=== PATIENT | female | born 1990 | race Caucasian/White ===

== ENCOUNTER 2021-06-10 23:30 | Emergency (ER) | payer OTHER ==
[2021-06-11] MEDS ORDERED: ACETAMINOPHEN TAB 500 MG TAB PO STA (00:24)
[2021-06-11] MEDS ORDERED: IBUPROFEN 600 MG TAB PO STA (00:25)
--- NOTE | 2021-06-11 00:37 | ED ---
Animal Bite HPI - General Chief Complaint: Animal Bite Stated Complaint: Dog bite Time Seen by Provider: 06/11/21 00:19 Source: patient, RN notes reviewed Mode of arrival: ambulatory Limitations: no limitations - History of Present Illness Initial Comments: This is a pleasant 30-year-old female presents to emergency department complaining of a dog bite to her left forearm as well as her right index finger. This was her friend's pit bull who she just met today for the first time. Dog is up-to-date on immunizations. Patient is up-to-date on tetanus. No immunosuppression. No functional impairment. No distal paresthesias. Injury occurred just over an hour ago. No headache, no fever or chills, no changes in vision or hearing, no sore throat or difficulty with speech, no neck pain, no chest pain or shortness of breath, no abdominal pain, no nausea or vomiting, no changes in urination or bowel movements, no numbness or tingling,, no skin rashes or lesions. MD Complaint: animal bite - Related Data Previous Rx's Medication Instructions Recorded Amoxicillin/Potassium Clav 1 each PO Q12HR #20 tab 06/11/21 [Augmentin 875-125 Tablet] Allergies Allergy/AdvReac Type Severity Reaction Status Date / Time No Known Allergies Allergy Verified 06/10/21 23:38 Review of Systems ROS Statement: Those systems with pertinent positive or pertinent negative responses have been documented in the HPI. ROS Other: All systems not noted in ROS Statement are negative. Past Medical History Past Medical History: No Reported History History of Any Multi-Drug Resistant Organisms: None Reported Past Surgical History: No Surgical Hx Reported Past Psychological History: No Psychological Hx Reported Smoking Status: Never smoker Past Alcohol Use History: None Reported Past Drug Use History: None Reported General Exam - General Exam Comments Initial Comments: Patient in mild distress. Does not appear to be ill or toxic. Cranial nerves II through XII grossly intact. Limitations: no limitations General appearance: alert, in distress Head exam: Present: atraumatic, normocephalic, normal inspection Eye exam: Present: normal appearance, PERRL, EOMI. Absent: scleral icterus, conjunctival injection, periorbital swelling ENT exam: Present: normal exam, mucous membranes moist Neck exam: Present: normal inspection, full ROM. Absent: tenderness, meningismus, lymphadenopathy Respiratory exam: Present: normal lung sounds bilaterally. Absent: respiratory distress, wheezes, rales, rhonchi, stridor Cardiovascular Exam: Present: regular rate, normal rhythm, normal heart sounds. Absent: systolic murmur, diastolic murmur, rubs, gallop, clicks GI/Abdominal exam: Present: soft, normal bowel sounds. Absent: distended, tenderness, guarding, rebound, rigid Extremities exam: Present: full ROM, tenderness (Soft tissue tenderness to palpation), normal capillary refill, other (Patient has a 3 cm wound to the extensor aspect of left forearm which extends into the subcutaneous tissue. Full range of motion all major joints. Full muscle strength on major muscle groups. Distal sensation intact.). Absent: pedal edema, joint swelling, calf tenderness Back exam: Present: normal inspection Neurological exam: Present: alert, oriented X3, CN II-XII intact Psychiatric exam: Present: normal affect, normal mood Skin exam: Present: warm, dry, normal color, abrasion (Abrasion to the flexor aspect of the right index finger). Absent: intact (Abrasion to right index finger. Superficial wound to the extensor aspect left forearm.), rash Course Vital Signs 06/10/21 23:32 Temperature 98.9 F Pulse Rate 105 H Respiratory 18 Rate Blood Pressure 110/50 O2 Sat by Pulse 96 Oximetry Procedures - Procedures Initial comment: Patient was prepped and draped in sterile fashion. 1% lidocaine without epinephrine was used to anesthetize wounds. Wounds were irrigated with copious amounts of sterile water. 500 mL. Left forearm wound was debrided with sterile forceps and scissors. Area of debridement was 2 x 2 centimeters. Steri-Strips applied. Sterile dressing applied. Antibiotic ointment applied. Medical Decision Making - Medical Decision Making Dog bite, wounds will not need repair. Patient will be placed on antibiotics. Tetanus is up-to-date. Plain film x-rays ordered. Disposition Clinical Impression: Dog bite, Bite wound of left forearm, Open wound of right index finger due to dog bite Disposition: HOME SELF-CARE Instructions (If sedation given, give patient instructions): Animal Bite (ED) Additional Instructions: Wash the wounds daily with warm soap and water. Apply antibiotic ointment such as Neosporin or triple antibiotic ointment. Follow-up with your regular physician in 2 days, or soon as possible, for wound check. Take the antibiotics as directed. Is patient prescribed a controlled substance at d/c from ED?: No Referrals: Segundo Scherer [STAFF PHYSICIAN] - 1-2 days Time of Disposition: 01:44
--- NOTE | 2021-06-11 00:54 | XR ---
EXAMINATION TYPE: XR forearm LT DATE OF EXAM: 06/11/2021 COMPARISON: NONE HISTORY: Dog bite. Pain TECHNIQUE: 2 views FINDINGS: Radius and ulna appear intact. I see no fracture nor dislocation. Elbow joint and wrist liborio nt appear anatomic. There is no evidence of a foreign body. IMPRESSION: Negative left forearm exam.
--- NOTE | 2021-06-11 00:57 | XR ---
EXAMINATION TYPE: XR finger RT DATE OF EXAM: 06/11/2021 COMPARISON: NONE HISTORY: Dog bite. TECHNIQUE: 3 view FINDINGS: The index finger appears intact. No evidence of a foreign body. No fracture nor dislocation . IMPRESSION: Normal right index finger exam.
[2021-06-11] MEDS ORDERED: BACITRACIN OINT 1 EACH PACKET TOPICAL ONE (01:23)
[2021-06-11] MEDS ORDERED: LIDOCAINE 1% INJ 10MG/ML (20 ML MDV) SQ ONE (01:29)
[2021-06-11 01:59] VITALS: BP 129/95; PULSE 73; RESP 16; TEMP 97.3
== END 2021-06-11 02:02 | disposition home or self-care (01) ==
LOC: EC 23:30
DX: S51.852A Open bite of left forearm, initial encounter (principal); S61.250A Open bite of right index finger without damage to nail, initial encounter; W54.0XXA Bitten by dog, initial encounter
CPT/HCPCS: 99283; 97597; 73090; 73140; J2001